=== PATIENT | male | born 1975 | race Caucasian/White ===

== ENCOUNTER 2019-11-24 04:55 | Inpatient (IN) | payer MEDICAID ==
[~2019-11-24] VITALS: Ht 177.8 cm; Wt 77.3 kg
--- NOTE | ~2019-11-24 | HEMODYNAMI ---
PATIENT:BURKE UNDERWOOD MEDICAL RECORD: [id number] : 77 LOCATION[facility] [id number] ADMISSION DATE: 11/24/19 Generatedon:11/24/20198:06 Patient name: BURKE UNDERWOOD Patient #: [id number] SSN: : 1975 Date of study: 11/24/2019 Page: Of Hemodynamic Procedure Report Patient Data Patient Demographics Procedure consent was obtained First Name: BURKE Gender: Male Last Name: KJ : 1975 Patient #: [id number] Age: 44 year(s) Race: Unknown Additional ID: [id number] Contact details [address]: [address] [place] [address] State: [place] City: [place] Zip code: [address] Past Medical History Allergies: No known allergies Admission Admission Data Admission Date: 11/24/2019 Admission Time: 6:15 Room #: D.2117 Lab Results Lab Result Date: 11/24/2019 Lab Result Time: 0:00 Biochemistry Name Units Result Min Max BUN mg/dl 11 --(-*--)-- 7 18 Creatinine mg/dl 1.3 --(---*)-- 0.6 1.3 CBC Name Units Result Min Max Hemoglobin g/dl 16.5 --(--*-)-- 13.5 17.5 Procedure Procedure Types Cath Procedure Diagnostic Procedure C [facility] w/Coronaries Sedation Charges Moderate Sedation up to 30 minutes Procedure Description Procedure Date Procedure Date: 11/24/2019 Procedure Start Time: 7:45 Procedure End Time: 8:01 Procedure Staff Name Function Cristofer Robles MD Performing Physician Jennie Real RT Monitor Genia Edwards RT Monitor Lara Shrestha RN Nurse Lin Galvez RT Scrub Procedure Data Cath Procedure Fluoroscopy Diagnostic fluoroscopy Total fluoroscopy Time: 2.6 time: 2.6 min min Diagnostic fluoroscopy Total fluoroscopy dose: 212 dose: 212 mGy mGy Contrast Material Contrast Material Type Amount (ml) Isovue 300 30 Entry Location Entry Primary Successful Side Size Upsize Upsize Entry Closure Rosa ccessful Closure Location (Fr) 1 (Fr) 2 (Fr) Remarks Device Remarks Radial Right 6 Fr Mechanical artery Short Compression Estimated blood loss: 10 ml Diagnostic catheters Device Type Used For End Catheter Placement DIAGNOSTIC [place] 110cm 5 Procedure Fr catheter ([id number]) Procedure Complications No complications Procedure Medications Medication Administration Route Dosage 0.9% NaCl I.V. 100 ml/hr Oxygen etCO2 Nasal cannula 2 l/min Lidocaine 2% added to field 20 Heparin Flush Bag added to field 2 bags (1000units/500ml NS) Radial Cocktail added to field 1 syringe (Verapamil 2mg/Nitro 400mcg/Heparin 1500units) Versed I.V. 1 mg Hemodynamics Rest HGB: 16.5 (g/dl) Heart Rate: 92 (bpm) Pressure Samples Time Site Value (mmHg) Purpose Heart Use Rate(bpm) 7:54 LV 68/14,4 Snapshot 92 Snapshots Pre Cath Intra NCS Post Cath Vital Signs Time Heart Resp SPO2 etCO2 NIBP (mmHg) Rhythm Pain Sedation Rate (ipm) (%) (mmHg) Status Level (bpm) 7:34:51 91 23 100 24.6 130/89(106) NSR 0 (11) 10(A) , No pain 7:39:01 98 24 100 21.6 139/86(116) NSR 0 (11) 10(A) , No pain 7:43:13 96 24 100 24.6 126/85(103) NSR 0 (11) 10(A) , No pain 7:47:19 95 27 99 20.1 126/93(103) NSR 0 (11) 10(A) , No pain 7:51:24 98 19 100 26.1 127/95(109) NSR 0 (11) 10(A) , No pain 7:55:39 94 24 100 22.4 116/68(90) NSR 0 (11) 10(A) , No pain 7:59:44 94 23 100 24.6 124/82(98) NSR 0 (11) 10(A) , No pain Medications Time Medication Route Dose Verified Delivered Reason Notes Ef fectiveness by by 7:39:16 0.9% NaCl I.V. 100 Norred Lara used for ml/hr Travis Shrestha tip inserter 7:39:24 Oxygen etCO2 2 l/min Norred Lara used for Nasal Travis Shrestha procedure cannula RN 7:39:54 Lidocaine 2% added 20ml Norred Norred for local to vial Travis Robles MD anesthetic field 7:39:59 Heparin Flush added 2 bags Norred Norred used for Bag to Travis Robles MD procedure (1000units/500ml field NS) 7:40:07 Radial Cocktail added 1 Norred Norred used for (Verapamil to syringe Travis Robles MD procedure 2mg/Nitro field 400mcg/Heparin 1500units) 7:40:21 Versed I.V. 1 mg Norred Lara for Travis Shrestha sedation tipple engineer Log Time Note 6:53:21 Informed consent obtained and on chart 7:01:17 ACC Patient presents with STEMI CCS Anginal Class 2--Slight limitation of ordinary activity. 7:01:25 ACCPatient has been prescribed/administered the following anti-anginal medication within the last 2 weeks: None 7:01:33 Procedure Status Emergent Heart Cath (AMI). 7:01:36 Lara Shrestha RN sent for patient. Start room use. 7:01:38 Time tracking: Regular hours (M-F 7:00 - 5:00) 7:01:42 Plan of Care:Hemodynamics will remain stable., Cardiac rhythm will remain stable., Comfort level will be maintained., Respiratory function will remain adequate., Patient/ family verbilizes understanding of procedure., Procedure tolerated without complication., Recovers from procedure without complications.. 7:02:35 H&P Date Dictated: 11/24/2019 Emergent; H&P N/A. 7:02:48 Patient allergic to No known allergies 7:02:51 Is the patient allergic to Iodine/contrast media? No. 7:02:53 Was the patient premedicated? N/A 7:02:55 Is patient on blood thinner?Yes 7:02:59 ACC The patient was administered the following blood thiners within the last 24 hours: ACCBrilinta 7:32:21 Patient diabetic? No. 7:32:26 Snore? No 7:32:27 Sleep apnea? No 7:32:40 Patient pain scale 0/10 ?. 7:32:48 IV patent on arrival in left forearm with 0.9% NaCl at O. 7:33:25 Lab Result : BUN 11 mg/dl 7:33: Lab Result : Creatinine 1.3 mg/dl 7:33: Lab Result : Hemoglobin 16.5 g/dl 7:33:33 Lab results completed and on chart. 7:33:51 Correct patient and procedure confirmed by team. 7:33:52 ECG and BP/O2 sat monitors applied to patient. 7:33:53 Baseline sample Acquired. 7:33:53 Vital chart was started 7:34:02 Rhythm: sinus rhythm , w/ ST elevation 7:34:04 Full Disclosure recording started 7:35:06 Physician arrived 7:35:07 --------ALL STOP TIME OUT------ 7:35:08 Final Timeout: patient, procedure, and site verified with staff and physician. All members of the team are in agreement. 7:35:10 Right Radial & Right Groin site verified by team. 7:35:15 Fire Safety Assessment: A--An alcohol-based skin anteseptic being used preoperatively., C--Open oxygen or nitrous oxide is being used., D--An ESU, laser, or fiber-optic light is being used. 7:35:19 Physical assessment completed. ASA score P 2 - A patient with mild systemic disease as per Cristofer Robles MD. 7:35:23 2) 60-89 Mildly reduced kidney function, and other findings (as for stage 1) point to kidney disease. 7:35:26 Maximum allowable contrast dose (3.7 X eGFR X 0.75)178 ml. 7:35:31 Sedation plan: IV Moderate Sedation Medication:Versed, Fentanyl 7:39:16 0.9% NaCl 100 ml/hr I.V. was administered by Lara Shrestha RN; used for procedure; Verbal order read back and verified. 7:39:24 Oxygen 2 l/min etCO2 Nasal cannula was administered by Lara Shrestha RN; used for procedure; Verbal order read back and verified. 7:39:54 Lidocaine 2% 20ml vial added to field was administered by Cristofer Robles MD; for local anesthetic; Verbal order read back and verified. 7:39:59 Heparin Flush Bag (1000units/500ml NS) 2 bags added to field was administered by Cristofer Robles MD; used for procedure; Verbal order read back and verified. 7:40:07 Radial Cocktail (Verapamil 2mg/Nitro 400mcg/Heparin 1500units) 1 syringe added to field was administered by Cristofer Robles MD; used for procedure; Verbal order read back and verified. 7:40:21 Versed 1 mg I.V. was administered by Lara Shrestha RN; for sedation; Verbal order read back and verified. 7:44:53 Procedure started. 7:44:55 Use device set Radial Dx or PCI 7:45:00 Local anesthetic to right radial artery with Lidocaine 2% by Cristofer Robles MD.INITIAL ACCESS ONLY 7:45:31 ACIST Syringe (16423) opened to sterile field. 7:45:32 Medline Cath Pack ([id number]) opened to sterile field. 7:45:32 Bag Decanter (2002) opened to sterile field. 7:45:33 ACIST Hand Control (37506) opened to sterile field. 7:45:33 ACIST Manifold (90128) opened to sterile field. 7:45:34 Tegaderm 4 x 4 (1626W) opened to sterile field. 7:45:36 MBrace Wrist Support ([id number]) opened to sterile field. 7:45:42 EMERALD Guide Wire (309-342) opened to sterile field. 7:45:43 SHEATH 6FR RAIN (6630433) opened to sterile field. 7:50:49 A 6 Fr Short sheath was inserted into the Right Radial artery 7:51:33 A DIAGNOSTIC [place] 110cm 5 Fr catheter (952749) was advanced over the wire and used for Procedure. 7:52:38 LV angiography performed. 7:53:40 Zero performed for pressure channel P1 7:55:11 RCA angiography performed. 7:55:56 LCA angiography performed. 7:56:24 Catheter removed. 7:57:29 Sheath removed intact; hemostasis achieved with Mechanical Compression to the Right Radial artery. 7:57:31 Procedure ended.(Physican Out) 7:57:43 Fluoroscopy time 02.60 minutes. 7:57:46 Fluoroscopy dose: 212 mGy 7:57:46 Flurop Dose total: 212 7:57:53 Dose Area Product 06274 mGy/cm. 7:58:02 Contrast amount:Isovue 300 30ml. 7:58:07 Maximum allowable dose exceeded? No. 7:58:08 Sharps counted by scrub and verified by R.N. 7:58:14 [place] band inflated with 10cc of air. 7:58:21 Insertion/operative site no bleeding no hematoma. 7:58:25 Post Procedure Pulses reassessed and unchanged 7:58:44 Post-procedure physical assessment completed. ASA score P 2 - A patient with mild systemic disease as per Cristofer Robles MD. 7:58:51 Post procedure rhythm: sinus tachycardia 7:58:54 Estimated blood loss: 10 ml 7:59:06 Post procedure instruction explained to patient.Patient verbalizes understanding. 7:59:28 Procedure type changed to Cath procedure, Diagnostic procedure, LHC, [facility] w/Coronaries, Sedation Charges, Moderate Sedation up to 30 minutes 7:59:40 Quick Combo opened to sterile field. 8:00:19 Procedure and supply charges have been captured, reviewed, submitted and are correct. 8:00:50 Procedure Complication : No complications 8:00:53 Vital chart was stopped 8:00:57 [facility] Findings: mild to moderate CAD (<70%) 8:01:08 See physician's report for complete and final results. 8:01:18 Report given to [facility] II. 8:01:21 Patient transfered to Med II with Bed. 8:01:23 Procedure ended. 8:01:23 Full Disclosure recording stopped 8:01:27 End room use (Document Last) 8:05:33 End room use (Document Last) Device Usage Item Name Manufacture Quantity Catalog Hospital Part Current Minim al Lot# / Number Charge Number Stock Stock Serial# Code ACIST Acist 1 18068 171994 [id number] [id number] 20 Syringe Medical (88254) Systems Inc Medline Medline 1 [id number] 97266 549094 5 Cath Pack ([id number]) Bag Microtek 1 004910 64603 521465 5 Decanter Medical Inc. () ACIST Hand Acist 1 11259 000563 640929 496427 5 Control Medical (61515) Systems Inc ACIST Acist 1 09138 929507 694001 875966 5 Manifold Medical (26939) Systems Inc Tegaderm 4 3M 1 1626W [id number] 774798 482825 5 x 4 (1626W) MBrace Advanced 1 [id number] 067441 33827 625778 5 Wrist Vascular Support Dynamics ([id number]) EMERALD Cardinal 1 502-300 887591 547953 263175 5 Guide Wire Health (502-188) SHEATH 6FR Cardinal 1 1745737 940621 9589485 484446 5 [facility] (4542705) DIAGNOSTIC Terumo 1 40-4194 531666 934260 820856 5 [place] 110cm 5 Fr catheter (370670) Apptera 1 [id number] 199809 755084 166037 5 Signature Audit [place] Stage Time Signature Unsigned Intra-Procedure 11/24/2019 Lin Galvez 8:05:33 AM RT(R) Intra-Procedure 11/24/2019 Cristofer Robles MD 8:06:43 AM [address] [id number] [place] [address]
[2019-11-24] MEDS ORDERED: LITHIUM CARBON300 MG PO (05:09)
[2019-11-24] MEDS ORDERED: BUPROPION XL300 MG PO (05:09)
[2019-11-24] MEDS ORDERED: GABAPENTIN300 MG PO (05:09)
[2019-11-24 05:24] LABS: HEMATOCRIT 46.7 % (42.0-54.0); HEMOGLOBIN 16.5 g/dL (13.5-17.5); LYMPHOCYTES 14.3 % (15-50); MCH 34.3 pg (26.0-34.0); MCHC 35.3 g/dL (31.0-37.0); MCV 97.1 fL (80.0-100.0); MEAN PLATELET VOLUME 10.3 fL (7.4-10.4); NEUTROPHILS 75.4 % (40-80); PLATELET COUNT 275 10x3/uL (130-400); RBC 4.81 10x6/uL (4.20-6.10); RDW 12.3 % (11.5-14.5); WBC 15.7 10x3/uL (4.8-10.8)
[2019-11-24 05:32] LABS: CALC OSMOLALITY 265 mosm/kg (275-300); CALCIUM 8.8 mg/dL (8.5-10.1); CARBON DIOXIDE 28.4 mmol/L (21.0-32.0); CHLORIDE - SERUM 98 mmol/L (98-107); CREATININE - SERUM 1.3 mg/dL (0.6-1.3); GLUCOSE 112 mg/dL (74-106); POTASSIUM - SERUM 3.7 mmol/L (3.5-5.1); SODIUM 133 mmol/L (136-145); UREA NITROGEN 11 mg/dL (7-18); eGFR NON AFRICAN AMERICAN 64 mL/min (90-120)
[2019-11-24 05:56] LABS: ALKALINE PHOSPHATASE 63 U/L (30-120); ALT (SGPT) 34 U/L (10-68); BILIRUBIN - TOTAL 0.87 mg/dL (0.2-1.3); LIPASE 74 U/L (73-393); PRO BNP 244 pg/mL (0-125); PROTEIN - SERUM 7.9 g/dL (6.4-8.2); THYROID STIMULATING HORMONE 1.09 uIU/mL (0.36-3.74)
[2019-11-24 06:04] LABS: CREATINE KINASE 1543 UL (21-232)
[2019-11-24 06:05] LABS: TROPONIN-I 0.307 ng/mL (0.000-0.060)
[2019-11-24 06:06] LABS: CKMB 2.6 U/L (0.0-3.6)
--- NOTE | 2019-11-24 06:21 | NUR ---
DR LEIVA NOTIFIED AND REVIEWED PT BEHAVIOR AND ASSESSMENT RESULTS. PT IS A LOW RISK PER DOCTOR LEIVA. DR LEIVA STATED TO GIVE RESOURCES TO PT AT TIME OF DISCHARGE. NO FURTHER ORDERS AT THIS TIME. RESOURCES REVIEWED WITH PATIENT AND HE VERBALIZED UNDERSTANDING.
[2019-11-24 06:39] VITALS: BP 120/73
[2019-11-24 08:39] VITALS: BP 122/75; Ht 177.8 cm; Wt 77.3 kg
--- NOTE | 2019-11-24 08:45 | NUR ---
RECEIVED PT FROM LENS COATING TECHNICIAN. PT IS AAO AND UP AD FLORIAN. NO S/S OF DISTRESS NOTED. RIGHT RADIAL INCISION IS C/D/I. ZEPHER BAND IN PLACE WITH 10ML OF AIR. NS INFUSING @200ML/HR VIA L.AC PIV. RR EVEN AND UNLABORED ON RA. VSS AND WNL. PT DENIES ANY NEEDS. WILL CTM. QUICKSTART, HISTORY, MED REQ, AND ASSESSMENT COMPLETED.
[2019-11-24 11:00] VITALS: BP 116/68
[2019-11-24 11:50] LABS: CKMB 2.1 U/L (0.0-3.6)
[2019-11-24 11:51] LABS: CREATINE KINASE 1711 UL (21-232); TROPONIN-I 0.414 ng/mL (0.000-0.060)
[2019-11-24 17:02] LABS: BILIRUBIN NEGATIVE (NEGATIVE); GLUCOSE NEGATIVE (NEGATIVE); KETONE NEGATIVE (NEGATIVE); NITRITE NEGATIVE (NEGATIVE); UROBILINOGEN NORMAL (NORMAL)
[2019-11-24 17:09] LABS: UDS - AMPHET POSITIVE QUAL (NEGATIVE); UDS - BARB NEGATIVE QUAL (NEGATIVE); UDS - BENZO POSITIVE QUAL (NEGATIVE); UDS - COCAINE NEGATIVE QUAL (NEGATIVE); UDS - OPIATE NEGATIVE QUAL (NEGATIVE); UDS - PCP NEGATIVE QUAL (NEGATIVE); UDS - THC POSITIVE QUAL (NEGATIVE)
[2019-11-24 20:00] VITALS: BP 118/66
[2019-11-25] VITALS: BP 108/64
[2019-11-25 04:00] VITALS: BP 118/74
[2019-11-25 07:43] LABS: BASOPHILS 0.1 % (0-2); EOSINOPHILS 2.5 % (0-7); HEMATOCRIT 45.9 % (42.0-54.0); HEMOGLOBIN 15.9 g/dL (13.5-17.5); IMMATURE GRANULOCYTES 0.4 % (0-5); LYMPHOCYTES 16.3 % (15-50); MCH 34.6 pg (26.0-34.0); MCHC 34.6 g/dL (31.0-37.0); MEAN PLATELET VOLUME 11.1 fL (7.4-10.4); MONOCYTES 9.2 % (2-11); NEUTROPHILS 71.5 % (40-80); PLATELET COUNT 268 10x3/uL (130-400); RDW 12.7 % (11.5-14.5); WBC 13.8 10x3/uL (4.8-10.8)
[2019-11-25 07:52] LABS: ALBUMIN 3.7 g/dL (3.4-5.0); ALKALINE PHOSPHATASE 59 U/L (30-120); ALT (SGPT) 35 U/L (10-68); BILIRUBIN - TOTAL 0.61 mg/dL (0.2-1.3); CALC OSMOLALITY 276 mosm/kg (275-300); CALCIUM 8.9 mg/dL (8.5-10.1); CARBON DIOXIDE 25.6 mmol/L (21.0-32.0); CHLORIDE - SERUM 104 mmol/L (98-107); GLUCOSE 84 mg/dL (74-106); POTASSIUM - SERUM 4.2 mmol/L (3.5-5.1); PROTEIN - SERUM 7.4 g/dL (6.4-8.2); SODIUM 140 mmol/L (136-145); UREA NITROGEN 10 mg/dL (7-18); eGFR NON AFRICAN AMERICAN 87 mL/min (90-120)
[2019-11-25 07:58] LABS: MCV 99.8 fL (80.0-100.0)
[2019-11-25 09:00] VITALS: BP 129/75
[2019-11-25 11:30] LABS: CHOL - HDL RATIO 2.5 ratio (2.3-4.9); LDL-HDL RATIO 1.1 ratio (1.5-3.5)
[2019-11-25] MEDS ORDERED: LOPRESSOR25 MG PO (11:49)
[2019-11-25] MEDS ORDERED: LIPITOR10 MG PO (11:50)
[2019-11-25] MEDS ORDERED: ASPIRIN325 MG PO (11:50)
[2019-11-25 12:08] VITALS: BP 108/89
--- NOTE | 2019-11-25 12:45 | NUR ---
IV AND TELEMETRY DCD. DC PLANS GIVEN. UNDERSTANDING VOICED.
--- NOTE | 2019-11-25 14:32 | NUR ---
ESCORTED TO CAR BY AIRCRAFT SALES REPRESENTATIVE.
== END 2019-11-25 14:32 | disposition home or self-care (01) | DRG 287 ==
LOC: D.ER 04:55 → D.M2 06:15 → OBSVTIME 06:15 → D.M2 15:09
PROVIDERS: Family Medicine; Internal Medicine Cardiovascular Disease; ADMIT Family Medicine; ATTEND Family Medicine
PROC: B2111ZZ Fluoroscopy of Multiple Coronary Arteries using Low Osmolar Contrast (ICD-10-PCS; 2019-11-24)
PROC: 4A023N7 Measurement of Cardiac Sampling and Pressure, Left Heart, Percutaneous Approach (ICD-10-PCS; principal; 2019-11-24 07:00)
DX: I20.1 Angina pectoris with documented spasm (principal); F17.213 Nicotine dependence, cigarettes, with withdrawal; E87.1 Hypo-osmolality and hyponatremia; I24.8 Other forms of acute ischemic heart disease; F15.10 Other stimulant abuse, uncomplicated; F43.10 Post-traumatic stress disorder, unspecified; F32.9 Major depressive disorder, single episode, unspecified; F43.22 Adjustment disorder with anxiety

== ENCOUNTER 2019-11-26 19:13 | Observation (INO) | payer MEDICAID ==
[~2019-11-26] VITALS: Ht 152.4 cm; Wt 77.3 kg
[~2019-11-26 19:13] MED LIST: ASPIRIN325 MG PO; BUPROPION XL300 MG PO; GABAPENTIN300 MG PO; LIPITOR10 MG PO; LITHIUM CARBON300 MG PO; LOPRESSOR25 MG PO
[2019-11-26 19:50] LABS: BASOPHILS 0.4 % (0-2); EOSINOPHILS 4.2 % (0-7); HEMATOCRIT 46.4 % (42.0-54.0); HEMOGLOBIN 16.5 g/dL (13.5-17.5); IMMATURE GRANULOCYTES 0.5 % (0-5); LYMPHOCYTES 29.5 % (15-50); MCH 35.2 pg (26.0-34.0); MCHC 35.6 g/dL (31.0-37.0); MCV 98.9 fL (80.0-100.0); MEAN PLATELET VOLUME 10.4 fL (7.4-10.4); MONOCYTES 9.5 % (2-11); NEUTROPHILS 55.9 % (40-80); PLATELET COUNT 297 10x3/uL (130-400); RBC 4.69 10x6/uL (4.20-6.10); RDW 12.5 % (11.5-14.5)
[2019-11-26 19:56] LABS: WBC 10.1 10x3/uL (4.8-10.8)
[2019-11-26 20:00] LABS: INR 0.94 (0.85-1.17); PROTIME 12.5 SECONDS (11.6-15.0)
[2019-11-26 20:01] LABS: APTT 28.5 SECONDS (22.8-39.4)
[2019-11-26 20:06] LABS: CALC OSMOLALITY 275 mosm/kg (275-300); CALCIUM 9.7 mg/dL (8.5-10.1); CARBON DIOXIDE 31.4 mmol/L (21.0-32.0); CHLORIDE - SERUM 103 mmol/L (98-107); CREATININE - SERUM 1.1 mg/dL (0.6-1.3); GLUCOSE 79 mg/dL (74-106); POTASSIUM - SERUM 4.1 mmol/L (3.5-5.1); SODIUM 139 mmol/L (136-145); UREA NITROGEN 10 mg/dL (7-18); eGFR NON AFRICAN AMERICAN 78 mL/min (90-120)
[2019-11-26 20:27] LABS: ALBUMIN 3.8 g/dL (3.4-5.0); ALKALINE PHOSPHATASE 55 U/L (30-120); ALT (SGPT) 42 U/L (10-68); BILIRUBIN - TOTAL 0.23 mg/dL (0.2-1.3); MAGNESIUM - SERUM 2.3 mg/dL (1.8-2.4); PROTEIN - SERUM 8.4 g/dL (6.4-8.2)
[2019-11-26 20:28] LABS: CREATINE KINASE 1457 UL (21-232)
[2019-11-27 00:20] VITALS: BP 110/80
--- NOTE | 2019-11-27 00:20 | NUR ---
PT FROM ER VIA W/C. RESP EVEN AND UNLABORED. NO DISTRESS NOTED, CL IN REACH, SR UP X 2.
[2019-11-27 03:25] VITALS: Ht 152.4 cm; Wt 77.3 kg
--- NOTE | 2019-11-27 03:43 | NUR ---
I have reviewed this patient and I concur with the Shift Assessment completed by the Licensed Practical Nurse today this shift.
[2019-11-27] MEDS ORDERED: ABILIFY10 MG PO (06:00)
[2019-11-27 06:37] LABS: UDS - AMPHET NEGATIVE QUAL (NEGATIVE); UDS - BARB NEGATIVE QUAL (NEGATIVE); UDS - BENZO NEGATIVE QUAL (NEGATIVE); UDS - COCAINE NEGATIVE QUAL (NEGATIVE); UDS - OPIATE NEGATIVE QUAL (NEGATIVE); UDS - PCP NEGATIVE QUAL (NEGATIVE); UDS - THC POSITIVE QUAL (NEGATIVE)
[2019-11-27 07:26] LABS: BASOPHILS 0.4 % (0-2); EOSINOPHILS 5.9 % (0-7); HEMATOCRIT 44.1 % (42.0-54.0); IMMATURE GRANULOCYTES 0.4 % (0-5); LYMPHOCYTES 30.2 % (15-50); MCH 33.9 pg (26.0-34.0); MCV 99.8 fL (80.0-100.0); MEAN PLATELET VOLUME 10.8 fL (7.4-10.4); MONOCYTES 10.5 % (2-11); NEUTROPHILS 52.6 % (40-80); PLATELET COUNT 305 10x3/uL (130-400); RBC 4.42 10x6/uL (4.20-6.10); RDW 12.4 % (11.5-14.5); WBC 7.6 10x3/uL (4.8-10.8)
[2019-11-27 07:32] LABS: CALC OSMOLALITY 274 mosm/kg (275-300); CALCIUM 8.9 mg/dL (8.5-10.1); CARBON DIOXIDE 32.3 mmol/L (21.0-32.0); CHLORIDE - SERUM 105 mmol/L (98-107); CKMB 1.1 U/L (0.0-3.6); CREATININE - SERUM 1.1 mg/dL (0.6-1.3); GLUCOSE 89 mg/dL (74-106); POTASSIUM - SERUM 4.4 mmol/L (3.5-5.1); SODIUM 139 mmol/L (136-145); UREA NITROGEN 8 mg/dL (7-18); eGFR NON AFRICAN AMERICAN 78 mL/min (90-120)
[2019-11-27 07:36] LABS: CREATINE KINASE 792 UL (21-232); TROPONIN-I 0.319 ng/mL (0.000-0.060)
[2019-11-27 12:32] LABS: CKMB 1.7 U/L (0.0-3.6); CREATINE KINASE 800 UL (21-232); TROPONIN-I 0.167 ng/mL (0.000-0.060)
--- NOTE | 2019-11-27 14:45 | NUR ---
PT DISCHARGED HOME VIA WHEELCHAIR. PIV REMOVED WITH CATHETER TIP FULLY INTACT. TELEMETRY REMOVED AND RETURNED. PT SIGNED PROPER DISCHARGE INSTRUCTIONS AND REMOVED ALL VALUABLES FROM THE ROOM.
== END 2019-11-27 14:46 | disposition home or self-care (01) ==
LOC: D.ER 19:13 → OBSVTIME 23:37 → D.M2 23:37
PROVIDERS: Family Medicine; ADMIT Family Medicine; ATTEND Family Medicine
DX: R94.30 Abnormal result of cardiovascular function study, unspecified (principal); I21.A9 Other myocardial infarction type; F17.213 Nicotine dependence, cigarettes, with withdrawal; F43.10 Post-traumatic stress disorder, unspecified

== ENCOUNTER 2020-09-28 18:38 | Emergency (ER) | payer OTHER ==
[~2020-09-28] VITALS: Ht 177.8 cm; Wt 73.6 kg
[~2020-09-28 18:38] MED LIST changes: +ABILIFY10 MG PO
[2020-09-28 18:53] VITALS: Ht 177.8 cm; Wt 73.6 kg
[2020-09-28 19:14] LABS: BASOPHILS 0.5 % (0-2); EOSINOPHILS 5.1 % (0-7); HEMATOCRIT 44.4 % (42.0-54.0); HEMOGLOBIN 15.9 g/dL (13.5-17.5); IMMATURE GRANULOCYTES 0.1 % (0-5); LYMPHOCYTES 29.2 % (15-50); MCH 34.5 pg (26.0-34.0); MCHC 35.8 g/dL (31.0-37.0); MCV 96.3 fL (80.0-100.0); MEAN PLATELET VOLUME 10.5 fL (7.4-10.4); MONOCYTES 9.1 % (2-11); PLATELET COUNT 271 10x3/uL (130-400); RBC 4.61 10x6/uL (4.20-6.10); RDW 12.5 % (11.5-14.5); WBC 7.9 10x3/uL (4.8-10.8)
[2020-09-28 19:19] LABS: BILIRUBIN NEGATIVE (NEGATIVE); KETONE NEGATIVE (NEGATIVE); NITRITE NEGATIVE (NEGATIVE); UROBILINOGEN NORMAL mg/dL (< 2)
[2020-09-28 19:23] LABS: CALC OSMOLALITY 281 mosm/kg (275-300); CALCIUM 9.4 mg/dL (8.5-10.1); CARBON DIOXIDE 26.5 mmol/L (21.0-32.0); CHLORIDE - SERUM 104 mmol/L (98-107); CREATININE - SERUM 0.9 mg/dL (0.6-1.3); GLUCOSE 85 mg/dL (74-106); POTASSIUM - SERUM 3.9 mmol/L (3.5-5.1); SODIUM 141 mmol/L (136-145); UREA NITROGEN 18 mg/dL (7-18); eGFR NON AFRICAN AMERICAN > 90 mL/min (90-120)
[2020-09-28 19:29] LABS: ALKALINE PHOSPHATASE 71 U/L (30-120); ALT (SGPT) 57 U/L (10-68); BILIRUBIN - TOTAL 0.39 mg/dL (0.2-1.3); PROTEIN - SERUM 7.7 g/dL (6.4-8.2)
[2020-09-28 19:49] LABS: UDS - AMPHET POSITIVE QUAL (NEGATIVE); UDS - BARB NEGATIVE QUAL (NEGATIVE); UDS - BENZO NEGATIVE QUAL (NEGATIVE); UDS - COCAINE NEGATIVE QUAL (NEGATIVE); UDS - OPIATE NEGATIVE QUAL (NEGATIVE); UDS - PCP NEGATIVE QUAL (NEGATIVE); UDS - THC POSITIVE QUAL (NEGATIVE)
--- NOTE | 2020-09-28 22:09 | NUR ---
DR LEIVA NOTIFIED AND SITTER ORDERED, SITTER AT BEDSIDE, NOTIFIED CHARGE AND ATTENDING IN REGARDS TO ASSESSMENT RESULTS. RESOURCES GIVEN TO PT AND SAFETY PLAN INITIATED.
[2020-09-29 00:32] LABS: SARS-CoV-2 ANTIGEN NEGATIVE- SARS-COV-2 (NEGATIVE)
[2020-09-29 06:42] VITALS: BP 115/69
== END 2020-09-29 09:31 ==
LOC: D.ER 18:38
PROVIDERS: Family Medicine
DX: R45.851 Suicidal ideations (principal); R44.0 Auditory hallucinations; R44.1 Visual hallucinations; F32.9 Major depressive disorder, single episode, unspecified